=== PATIENT | male | born 1940 | race Caucasian/White ===

== ENCOUNTER 2018-10-13 15:20 | Inpatient (IN) | payer MEDICARE, MEDICAID ==
--- NOTE | 2018-10-13 16:20 | EDM.PDOC ---
ED HPI GENERAL MEDICAL PROBLEM - General Chief Complaint: Genitourinary Problem Stated Complaint: medical via [place] Time Seen by Provider: 10/13/18 15:25 Source of Information: Reports: Patient History Limitations: Reports: No Limitations - History of Present Illness INITIAL COMMENTS - FREE TEXT/NARRATIVE: pt arrived with increased confusion, smelly urinre and a history of urinating frequently. . Onset: Today, Sudden Duration: Hour(s): Location: Reports: Abdomen Associated Symptoms: Reports: Confusion, Diaphoresis, Weakness - Related Data Allergies Allergy/AdvReac Type Severity Reaction Status Date / Time No Known Allergies Allergy Verified 10/13/18 15:31 Home Meds: Home Meds Acetaminophen [Tylenol] 2 tab PO Q4H PRN 10/13/18 [History] Aspirin [Halfprin] 1 tab PO DAILY 10/13/18 [History] Cholecalciferol (Vitamin D3) [Vitamin D3] 1 tab PO DAILY 10/13/18 [History] Sennosides/Docusate Sodium [Senna-S] 1 tab PO DAILY 10/13/18 [History] traMADol [Ultram] 1 tab PO ASDIRECTED 10/13/18 [History] Past Medical History Gastrointestinal History: Reports: Chronic Constipation, Fecal Incontinence Genitourinary History: Reports: Urinary Incontinence Neurological History: Reports: Other (See Below) Dermatologic History: Reports: Chronic Cellulitis Social & Family History - Tobacco Use Smoking Status *Q: Unknown Ever Smoked Second Hand Smoke Exposure: No - Caffeine Use Caffeine Use: Reports: None - Recreational Drug Use Recreational Drug Use: No ED ROS GENERAL - Review of Systems Review Of Systems: See Below Constitutional: Reports: Chills, Weakness HEENT: Reports: No Symptoms Respiratory: Reports: No Symptoms Cardiovascular: Reports: No Symptoms Endocrine: Reports: No Symptoms GI/Abdominal: Reports: No Symptoms : Reports: Frequency Musculoskeletal: Reports: No Symptoms Skin: Reports: No Symptoms Neurological: Reports: Confusion, Headache Psychiatric: Reports: Agitation ED EXAM, RENAL/ - Physical Exam Exam: See Below Text/Narrative:: pt arrived with weakness and increased confusion. He has been urinating frequenly. Exam Limited By: No Limitations General Appearance: Alert, Other (pt is very confused. ) Ears: Normal TMs Nose: Normal Inspection Throat/Mouth: Normal Inspection Head: Atraumatic Neck: Normal Inspection Respiratory/Chest: No Respiratory Distress GI/Abdominal: Soft, Non-Tender (Male) Exam: Deferred Rectal (Males) Exam: Deferred Back Exam: Normal Inspection Extremities: Normal Inspection Neurological: Alert, Confused Course - Vital Signs Last Recorded V/S: Last Vital Signs Temp 36.8 C 10/13/18 15:28 Pulse 96 10/13/18 17:03 Resp 20 10/13/18 17:03 BP 160/70 H 10/13/18 17:03 Pulse Ox 100 10/13/18 17:03 - Orders/Labs/Meds Orders: Active Orders 24 hr Category Date Time Status Dietary Supplements [RC] BIDMEALS Care 10/13/18 16:38 Active CULTURE BLOOD [BC] Urgent Lab 10/13/18 17:11 Received CULTURE BLOOD [BC] Urgent Lab 10/13/18 17:24 Received CULTURE URINE [RM] Stat Lab 10/13/18 16:38 Received Sodium Chloride 0.9% [Normal Saline] 1,000 ml Med 10/13/18 16:45 Active IV ASDIRECTED Sodium Chloride 0.9% [Normal Saline] 1,000 ml Med 10/13/18 17:15 Active IV ASDIRECTED Blood Culture x2 Reflex Set [OM.PC] Urgent Oth 10/13/18 17:10 Ordered Medication Orders Sodium Chloride (Normal Saline) 1,000 mls @ 999 mls/hr IV ASDIRECTED [facility] Last Admin: 10/13/18 16:53 Dose: 999 mls/hr Sodium Chloride (Normal Saline) 1,000 mls @ 600 mls/hr IV ASDIRECTED [facility] Labs: Laboratory Tests 10/13/18 10/13/18 10/13/18 Range/Units 16:08 16:08 16:16 WBC 17.0 H (4.5-11.0) K/uL RBC 4.64 (4.30-5.90) M/uL Hgb 13.9 (12.0-15.0) g/dL Hct 42.9 (40.0-54.0) % MCV 93 (80-98) fL MCH 30 (27-31) pg MCHC 32 (32-36) % Plt Count 245 (150-400) K/uL Neut % (Auto) 80 H (36-66) % Lymph % (Auto) 9 L (24-44) % [place] % (Auto) 10 H (2-6) % Eos % (Auto) 1 L (2-4) % Baso % (Auto) 0 (0-1) % Sodium 134 L (140-148) mmol/L Potassium 4.4 (3.6-5.2) mmol/L Chloride 98 L (100-108) mmol/L Carbon Dioxide 28 (21-32) mmol/L Anion Gap 12.4 (5.0-14.0) mmol/L BUN 18 (7-18) mg/dL Creatinine 0.9 (0.8-1.3) mg/dL Est Cr Clr Drug Dosing 66.55 mL/min Estimated GFR (MDRD) > 60 (>60) Glucose 100 (74-106) mg/dL Lactic Acid (0.4-2.0) mmol/L Calcium 9.0 (8.5-10.1) mg/dL Total Bilirubin 0.5 (0.2-1.0) mg/dL AST 42 H (15-37) U/L ALT 45 (12-78) U/L Alkaline Phosphatase 59 (46-116) U/L Total Protein 7.7 (6.4-8.2) g/dL Albumin 3.1 L (3.4-5.0) g/dL Globulin 4.6 H (2.3-3.5) g/dL Albumin/Globulin Ratio 0.7 L (1.2-2.2) Urine Color Yellow Urine Appearance Cloudy Urine pH 5.0 (4.5-8.0) Ur Specific [place] 1.015 (1.008-1.030) Urine Protein Trace (NEGATIVE) mg/dL Urine Glucose (UA) Normal (NEGATIVE) mg/dL Urine Ketones 15 H (NEGATIVE) mg/dL Urine Occult Blood Large (NEGATIVE) Urine Nitrite Positive H (NEGAITVE) Urine Bilirubin Negative (NEGATIVE) Urine Urobilinogen Normal (NORMAL) mg/dL Ur Leukocyte Esterase Large (NEGATIVE) Urine RBC 10-20 H (0-5) Urine WBC 50-75 H (0-5) Ur Epithelial Cells Not seen Amorphous Sediment Not seen Urine Bacteria Many Urine Mucus Not seen 10/13/18 Range/Units 17:11 WBC (4.5-11.0) K/uL RBC (4.30-5.90) M/uL Hgb (12.0-15.0) g/dL Hct (40.0-54.0) % MCV (80-98) fL MCH (27-31) pg MCHC (32-36) % Plt Count (150-400) K/uL Neut % (Auto) (36-66) % Lymph % (Auto) (24-44) % [place] % (Auto) (2-6) % Eos % (Auto) (2-4) % Baso % (Auto) (0-1) % Sodium (140-148) mmol/L Potassium (3.6-5.2) mmol/L Chloride (100-108) mmol/L Carbon Dioxide (21-32) mmol/L Anion Gap (5.0-14.0) mmol/L BUN (7-18) mg/dL Creatinine (0.8-1.3) mg/dL Est Cr Clr Drug Dosing mL/min Estimated GFR (MDRD) (>60) Glucose (74-106) mg/dL Lactic Acid 1.3 (0.4-2.0) mmol/L Calcium (8.5-10.1) mg/dL Total Bilirubin (0.2-1.0) mg/dL AST (15-37) U/L ALT (12-78) U/L Alkaline Phosphatase (46-116) U/L Total Protein (6.4-8.2) g/dL Albumin (3.4-5.0) g/dL Globulin (2.3-3.5) g/dL Albumin/Globulin Ratio (1.2-2.2) Urine Color Urine Appearance Urine pH (4.5-8.0) Ur Specific [place] (1.008-1.030) Urine Protein (NEGATIVE) mg/dL Urine Glucose (UA) (NEGATIVE) mg/dL Urine Ketones (NEGATIVE) mg/dL Urine Occult Blood (NEGATIVE) Urine Nitrite (NEGAITVE) Urine Bilirubin (NEGATIVE) Urine Urobilinogen (NORMAL) mg/dL Ur Leukocyte Esterase (NEGATIVE) Urine RBC (0-5) Urine WBC (0-5) Ur Epithelial Cells Amorphous Sediment Urine Bacteria Urine Mucus Meds: Medications Generic Name Dose Route Start Last Admin Trade Name Freq PRN Reason Stop Dose Admin Sodium Chloride 1,000 mls @ 999 mls/hr 10/13/18 16:45 10/13/18 16:53 Normal Saline IV 999 mls/hr ASDIRECTED [facility] Administration Sodium Chloride 1,000 mls @ 600 mls/hr 10/13/18 17:15 Normal Saline IV ASDIRECTED [facility] Discontinued Medications Generic Name Dose Route Start Last Admin Trade Name Dunia PRN Reason Stop Dose Admin Ceftriaxone Sodium 1 gm/ 50 mls @ 100 mls/hr 10/13/18 16:38 10/13/18 16:52 Sodium Chloride IV 10/13/18 17:07 100 mls/hr ONETIME ONE Administration Ketorolac Tromethamine 30 mg 10/13/18 16:39 10/13/18 16:47 Toradol IVPUSH 10/13/18 16:40 30 mg ONETIME ONE Administration - Re-Assessments/Exams Free Text/Narrative Re-Assessment/Exam: 10/13/18 17:44 lactic acid is not elevated. Urine is very infected. His wbc is 17,000. His vitals have been stable. Departure - Departure Time of Disposition: 17:44 Disposition: Admitted As Inpatient 65 Condition: Fair Clinical Impression: UTI (urinary tract infection), Confusion - Discharge Information Referrals: Amilcar Claudio MD [Primary Care Provider] - Forms: ED Department Discharge Care Plan Goals: admit to Dr Zavala - My Orders Last 24 Hours: My Active Orders 10/13/18 16:38 Dietary Supplements [RC] BIDMEALS CULTURE URINE [RM] Stat 10/13/18 16:45 Sodium Chloride 0.9% [Normal Saline] 1,000 ml IV ASDIRECTED 10/13/18 17:10 Blood Culture x2 Reflex Set [OM.PC] Urgent 10/13/18 17:11 CULTURE BLOOD [BC] Urgent 10/13/18 17:15 Sodium Chloride 0.9% [Normal Saline] 1,000 ml IV ASDIRECTED 10/13/18 17:24 CULTURE BLOOD [BC] Urgent - Assessment/Plan Last 24 Hours: My Active Orders 10/13/18 16:38 Dietary Supplements [RC] BIDMEALS CULTURE URINE [RM] Stat 10/13/18 16:45 Sodium Chloride 0.9% [Normal Saline] 1,000 ml IV ASDIRECTED 10/13/18 17:10 Blood Culture x2 Reflex Set [OM.PC] Urgent 10/13/18 17:11 CULTURE BLOOD [BC] Urgent 10/13/18 17:15 Sodium Chloride 0.9% [Normal Saline] 1,000 ml IV ASDIRECTED 10/13/18 17:24 CULTURE BLOOD [BC] Urgent
[2018-10-13] MEDS ORDERED: cefTRIAXone 1 GM in Sodium Chloride 0.9% 50 ML IV ONE (16:38)
[2018-10-13] MEDS ORDERED: Ketorolac 30 MG/ML SDV IVPUSH ONE (16:39)
[2018-10-13] MEDS ORDERED: Sodium Chloride 0.9% 1,000 ML IV SCH ×2 (16:45→17:15)
--- NOTE | 2018-10-13 18:49 | PCM.HP ---
H&P History of Present Illness - General Date of Service: 10/13/18 Admit Problem/Dx: Admission Diagnosis/Problem Admission Diagnosis/Problem Cystitis Source of Information: [facility] Records, Provider, RN Notes Reviewed History Limitations: Reports: Altered Mental Status - History of Present Illness Initial Comments - Free Text/Narative: Mr. Alegria is a 78-year-old gentleman who is admitted through the emergency department with weakness and decreased level of consciousness secondary to underlying urinary tract infection. He has a known history of moderate to severe dementia. Nursing staff at the senior care reported decreased level of consciousness this morning. He was brought into the emergency department for further evaluation. On assessment urinalysis shows evidence of obvious infection and his white blood cell count is elevated. Other than a mild tachycardia vital signs are stable and he has been afebrile. Lactic acid level is within normal range. He is unable to provide significant information concerning recent symptoms or review of systems because of his underlying dementia and decreased level of consciousness. - Related Data Allergies/Adverse Reactions: Allergies Allergy/AdvReac Type Severity Reaction Status Date / Time No Known Allergies Allergy Verified 10/13/18 15:31 Home Medications: Home Meds Acetaminophen [Tylenol] 2 tab PO Q4H PRN 10/13/18 [History] Aspirin [Halfprin] 1 tab PO DAILY 10/13/18 [History] Cholecalciferol (Vitamin D3) [Vitamin D3] 1 tab PO DAILY 10/13/18 [History] Sennosides/Docusate Sodium [Senna-S] 1 tab PO DAILY 10/13/18 [History] traMADol [Ultram] 1 tab PO ASDIRECTED 10/13/18 [History] Past Medical History Gastrointestinal History: Reports: Chronic Constipation, Fecal Incontinence Genitourinary History: Reports: Urinary Incontinence Neurological History: Reports: Other (See Below) Dermatologic History: Reports: Chronic Cellulitis Social & Family History - Tobacco Use Smoking Status *Q: Unknown Ever Smoked Second Hand Smoke Exposure: No - Caffeine Use Caffeine Use: Reports: None - Recreational Drug Use Recreational Drug Use: No H&P Review of Systems - Review of Systems: Review Of Systems: Unable To Obtain General: Reports: ROS unobtainable (Dementia, decreased level of consciousness) Exam - Exam Exam: See Below - Vital Signs Vital Signs: Last Vital Signs Temp 98.2 F 01/10/19 15:28 Pulse 96 10/13/18 17:03 Resp 20 10/13/18 17:03 BP 160/70 H 10/13/18 17:03 Pulse Ox 100 10/13/18 17:03 Weight: 172 lb - Exam General: Lethargic HEENT: Conjunctiva Clear, Normal Nasal Septum, Posterior Pharynx Clear, Pupils Equal. No: Mucosa Moist & [place] Neck: Supple, Trachea Midline, +2 Carotid Pulse wo Bruit Lungs: Clear to Auscultation, Normal Respiratory Effort Cardiovascular: Regular Rate, Regular Rhythm, Normal S1, Normal S2. No: Systolic Murmur, Diastolic Murmur GI/Abdominal Exam: Soft, Non-Tender, No Organomegaly, No Distention Extremities: Non-Tender, No Pedal Edema Skin: Warm, Dry - Patient Data Lab Results Last 24 hrs: Laboratory Results - last 24 hr 10/13/18 10/13/18 10/13/18 Range/Units 16:08 16:08 16:16 WBC 17.0 H (4.5-11.0) K/uL RBC 4.64 (4.30-5.90) M/uL Hgb 13.9 (12.0-15.0) g/dL Hct 42.9 (40.0-54.0) % MCV 93 (80-98) fL MCH 30 (27-31) pg MCHC 32 (32-36) % Plt Count 245 (150-400) K/uL Neut % (Auto) 80 H (36-66) % Lymph % (Auto) 9 L (24-44) % [place] % (Auto) 10 H (2-6) % Eos % (Auto) 1 L (2-4) % Baso % (Auto) 0 (0-1) % Sodium 134 L (140-148) mmol/L Potassium 4.4 (3.6-5.2) mmol/L Chloride 98 L (100-108) mmol/L Carbon Dioxide 28 (21-32) mmol/L Anion Gap 12.4 (5.0-14.0) mmol/L BUN 18 (7-18) mg/dL Creatinine 0.9 (0.8-1.3) mg/dL Est Cr Clr Drug Dosing 66.55 mL/min Estimated GFR (MDRD) > 60 (>60) Glucose 100 (74-106) mg/dL Lactic Acid (0.4-2.0) mmol/L Calcium 9.0 (8.5-10.1) mg/dL Total Bilirubin 0.5 (0.2-1.0) mg/dL AST 42 H (15-37) U/L ALT 45 (12-78) U/L Alkaline Phosphatase 59 (46-116) U/L Total Protein 7.7 (6.4-8.2) g/dL Albumin 3.1 L (3.4-5.0) g/dL Globulin 4.6 H (2.3-3.5) g/dL Albumin/Globulin Ratio 0.7 L (1.2-2.2) Urine Color Yellow Urine Appearance Cloudy Urine pH 5.0 (4.5-8.0) Ur Specific [place] 1.015 (1.008-1.030) Urine Protein Trace (NEGATIVE) mg/dL Urine Glucose (UA) Normal (NEGATIVE) mg/dL Urine Ketones 15 H (NEGATIVE) mg/dL Urine Occult Blood Large (NEGATIVE) Urine Nitrite Positive H (NEGAITVE) Urine Bilirubin Negative (NEGATIVE) Urine Urobilinogen Normal (NORMAL) mg/dL Ur Leukocyte Esterase Large (NEGATIVE) Urine RBC 10-20 H (0-5) Urine WBC 50-75 H (0-5) Ur Epithelial Cells Not seen Amorphous Sediment Not seen Urine Bacteria Many Urine Mucus Not seen 10/13/18 Range/Units 17:11 WBC (4.5-11.0) K/uL RBC (4.30-5.90) M/uL Hgb (12.0-15.0) g/dL Hct (40.0-54.0) % MCV (80-98) fL MCH (27-31) pg MCHC (32-36) % Plt Count (150-400) K/uL Neut % (Auto) (36-66) % Lymph % (Auto) (24-44) % [place] % (Auto) (2-6) % Eos % (Auto) (2-4) % Baso % (Auto) (0-1) % Sodium (140-148) mmol/L Potassium (3.6-5.2) mmol/L Chloride (100-108) mmol/L Carbon Dioxide (21-32) mmol/L Anion Gap (5.0-14.0) mmol/L BUN (7-18) mg/dL Creatinine (0.8-1.3) mg/dL Est Cr Clr Drug Dosing mL/min Estimated GFR (MDRD) (>60) Glucose (74-106) mg/dL Lactic Acid 1.3 (0.4-2.0) mmol/L Calcium (8.5-10.1) mg/dL Total Bilirubin (0.2-1.0) mg/dL AST (15-37) U/L ALT (12-78) U/L Alkaline Phosphatase (46-116) U/L Total Protein (6.4-8.2) g/dL Albumin (3.4-5.0) g/dL Globulin (2.3-3.5) g/dL Albumin/Globulin Ratio (1.2-2.2) Urine Color Urine Appearance Urine pH (4.5-8.0) Ur Specific [place] (1.008-1.030) Urine Protein (NEGATIVE) mg/dL Urine Glucose (UA) (NEGATIVE) mg/dL Urine Ketones (NEGATIVE) mg/dL Urine Occult Blood (NEGATIVE) Urine Nitrite (NEGAITVE) Urine Bilirubin (NEGATIVE) Urine Urobilinogen (NORMAL) mg/dL Ur Leukocyte Esterase (NEGATIVE) Urine RBC (0-5) Urine WBC (0-5) Ur Epithelial Cells Amorphous Sediment Urine Bacteria Urine Mucus Result Diagrams: 10/13/18 16:08 10/13/18 16:08 *Q Meaningful Use (ADM) - VTE Risk Assess *Q Each Risk Factor Represents 1 Point: None Total Score 1 Point Risk Factors: 0 Each Risk Factor Represents 2 Points: None Total Score 2 Point Risk Factors: 0 Each Risk Factor Represents 3 Points: Age 75 Years or Greater Total Score 3 Point Risk Factors: 3 Each Risk Factor Represents 5 Points: None Total Score 5 Point Risk Factors: 0 Venous Thromboembolism Risk Factor Score *Q: 3 Problem List Initiated/Reviewed/Updated: Yes Orders Last 24hrs: Active Orders 24 hr Category Date Time Status Patient Status Manage Transfer [TRANSFER] Routine ADT 10/13/18 18:30 Active Dietary Supplements [RC] BIDMEALS Care 10/13/18 16:38 Active CULTURE BLOOD [BC] Urgent Lab 10/13/18 17:11 Received CULTURE BLOOD [BC] Urgent Lab 10/13/18 17:24 Received CULTURE URINE [RM] Stat Lab 10/13/18 16:38 Received Sodium Chloride 0.9% [Normal Saline] 1,000 ml Med 10/13/18 16:45 Active IV ASDIRECTED Sodium Chloride 0.9% [Normal Saline] 1,000 ml Med 10/13/18 17:15 Active IV ASDIRECTED Blood Culture x2 Reflex Set [OM.PC] Urgent Oth 10/13/18 17:10 Ordered Resuscitation Status Routine Resus Stat 10/13/18 18:38 Ordered Medication Orders Sodium Chloride (Normal Saline) 1,000 mls @ 999 mls/hr IV ASDIRECTED [facility] Last Admin: 10/13/18 16:53 Dose: 999 mls/hr Sodium Chloride (Normal Saline) 1,000 mls @ 600 mls/hr IV ASDIRECTED [facility] Assessment/Plan Comment:: ASSESSMENT AND PLAN URINARY TRACT INFECTION-uncomplicated with no evidence of sepsis -Urine and blood cultures pending -IV fluids for hydration -Rocephin 1 g IV every 24 hours pending culture results DECREASED LEVEL OF CONSCIOUSNESS-likely secondary to current urinary tract infection -Monitor closely for improvement with management of UTI DEMENTIA-at high risk for delirium during hospitalization -Melatonin 9 mg by mouth daily at bedtime MAINTENANCE ISSUES -DVT prophylaxis; Lovenox 40 mg subcutaneous daily -GI prophylaxis; not indicated -Storm catheter; not indicated -Nutrition; regular diet -Nicotine dependence; not required CODE STATUS-FULL CODE ADMISSION STATUS-patient will be admitted to inpatient status, expect at least a 2 night hospital stay for evaluation and management of problems as outlined above. At the time of this admission I do not reasonably expected evaluation and management of this problem will require more than a 96 hour hospital stay. DISPOSITION-anticipate discharge to home after the hospital stay. PRIMARY CARE PROVIDER-
[2018-10-13] MEDS ORDERED: Enoxaparin 40 MG/0.4 ML Syringe SUBCUT SCH (19:00)
[2018-10-13] MEDS ORDERED: Polyethylene Glycol 3350 Powder 17 GM Packet PO PRN (19:03)
[2018-10-13] MEDS ORDERED: Acetaminophen 325 MG Tab PO PRN (19:03)
[2018-10-13] MEDS ORDERED: Sodium Chloride 0.9% 10 ML Syringe FLUSH PRN (19:03)
[2018-10-13] MEDS ORDERED: Ondansetron 4 MG Tab.DIS PO PRN (19:03)
[2018-10-13] MEDS: Sodium Chloride 0.9% 1,000 ML IV SCH (19:24)
[2018-10-14] MEDS: Sodium Chloride 0.9% 1,000 ML IV SCH (02:54)
[2018-10-14] MEDS ORDERED: Aspirin 81 MG Tab.EC PO SCH (09:00)
--- NOTE | 2018-10-14 12:33 | PCM.DCSUM1 ---
Discharge Summary - Hospital Course Brief History: Mr. Alegria is a 78-year-old gentleman who is admitted through the emergency department with decreased level of consciousness and weakness secondary to underlying urinary tract infection. - Discharge Data Discharge Date: 10/14/18 Discharge Disposition: DC/Tfer to SNF 03 Condition: Fair - Discharge Diagnosis/Problem(s) (1) Dehydration SNOMED Code(s): 38391253 ICD Code: E86.0 - DEHYDRATION Status: Acute Current Visit: Yes (2) Dementia SNOMED Code(s): 59675548 ICD Code: F03.90 - UNSPECIFIED DEMENTIA WITHOUT BEHAVIORAL DISTURBANCE Status: Acute Current Visit: Yes (3) Decreased level of consciousness SNOMED Code(s): 961966145 ICD Code: R40.4 - TRANSIENT ALTERATION OF AWARENESS Status: Acute Current Visit: Yes (4) UTI (urinary tract infection) SNOMED Code(s): 14829011 ICD Code: N39.0 - URINARY TRACT INFECTION, SITE NOT SPECIFIED Status: Acute Current Visit: Yes - Patient Summary/Data Hospital Course: Mr. Alegria is a 78-year-old gentleman who was admitted through the emergency department with weakness and decreased level of consciousness secondary to underlying urinary tract infection. He has a known history of moderate to severe dementia. Nursing staff at the [facility] reported decreased level of consciousness on the morning of admission. He was brought into the emergency department for further evaluation. On assessment urinalysis shows evidence of obvious infection and his white blood cell count is elevated. Other than a mild tachycardia vital signs are stable and he has been afebrile. Lactic acid level is within normal range. He is unable to provide significant information concerning recent symptoms or review of systems because of his underlying dementia and decreased level of consciousness. Blood and urine cultures were obtained at the time of admission and are pending at the time of discharge. Urine culture is growing gram-negative rods, final ID and sensitivities are pending. He was given IV fluids for hydration and started on IV antibiotic therapy with Rocephin 1 g IV every 24 hours. By the following morning he was felt to be back to baseline state, conversant and sitting in the chair. He had been admitted to inpatient status, because of more rapid improvement than initially expected, he will be discharged back to the [facility] after just one night of hospitalization. He will receive one additional dose of IV Rocephin prior to discharge and will be placed on 3 or days of oral antibiotic therapy with Omnicef 300 mg by mouth twice a day, pending final culture results. Activity will be as tolerated and he will resume his usual diet. Follow-up with primary care will be at the [facility] as needed. - Patient Instructions Diet: Usual Diet as Tolerated Activity: As Tolerated - Discharge Plan *PRESCRIPTION DRUG MONITORING PROGRAM REVIEWED*: Not Applicable *COPY OF PRESCRIPTION DRUG MONITORING REPORT IN PATIENT JAY: Not Applicable Prescriptions/Med Rec: Cefdinir [Omnicef] 300 mg PO BID #6 cap Home Medications: Home Meds Acetaminophen [Tylenol] 2 tab PO Q4H PRN 10/13/18 [History] Aspirin [Halfprin] 1 tab PO DAILY 10/13/18 [History] Cholecalciferol (Vitamin D3) [Vitamin D3] 1 tab PO DAILY 10/13/18 [History] Sennosides/Docusate Sodium [Senna-S] 1 tab PO DAILY 10/13/18 [History] traMADol [Ultram] 1 tab PO ASDIRECTED 10/13/18 [History] Cefdinir [Omnicef] 300 mg PO BID #6 cap 10/14/18 [Rx] Referrals: Amilcar Claudio MD [Primary Care Provider] - - Discharge Summary/Plan Comment DC Time >30 min.: No - Patient Data Vitals - Most Recent: Last Vital Signs Temp 96.4 F 10/14/18 10:54 Pulse 95 10/14/18 10:54 Resp 18 10/14/18 10:54 BP 142/64 H 10/14/18 10:54 Pulse Ox 94 L 10/14/18 10:54 Weight - Most Recent: 171 lb 15.369 oz I&O - Last 24 hours: Intake & Output 10/13/18 10/14/18 10/14/18 22:59 06:59 14:59 Intake Total 280 Balance 280 Lab Results - Last 24 hrs: Laboratory Results - last 24 hr 10/13/18 10/13/18 10/13/18 Range/Units 16:08 16:08 16:16 WBC 17.0 H (4.5-11.0) K/uL RBC 4.64 (4.30-5.90) M/uL Hgb 13.9 (12.0-15.0) g/dL Hct 42.9 (40.0-54.0) % MCV 93 (80-98) fL MCH 30 (27-31) pg MCHC 32 (32-36) % Plt Count 245 (150-400) K/uL Neut % (Auto) 80 H (36-66) % Lymph % (Auto) 9 L (24-44) % [place] % (Auto) 10 H (2-6) % Eos % (Auto) 1 L (2-4) % Baso % (Auto) 0 (0-1) % Sodium 134 L (140-148) mmol/L Potassium 4.4 (3.6-5.2) mmol/L Chloride 98 L (100-108) mmol/L Carbon Dioxide 28 (21-32) mmol/L Anion Gap 12.4 (5.0-14.0) mmol/L BUN 18 (7-18) mg/dL Creatinine 0.9 (0.8-1.3) mg/dL Est Cr Clr Drug Dosing 66.55 mL/min Estimated GFR (MDRD) > 60 (>60) Glucose 100 (74-106) mg/dL Lactic Acid (0.4-2.0) mmol/L Calcium 9.0 (8.5-10.1) mg/dL Magnesium (1.8-2.4) mg/dL Total Bilirubin 0.5 (0.2-1.0) mg/dL AST 42 H (15-37) U/L ALT 45 (12-78) U/L Alkaline Phosphatase 59 (46-116) U/L Total Protein 7.7 (6.4-8.2) g/dL Albumin 3.1 L (3.4-5.0) g/dL Globulin 4.6 H (2.3-3.5) g/dL Albumin/Globulin Ratio 0.7 L (1.2-2.2) Urine Color Yellow Urine Appearance Cloudy Urine pH 5.0 (4.5-8.0) Ur Specific [place] 1.015 (1.008-1.030) Urine Protein Trace (NEGATIVE) mg/dL Urine Glucose (UA) Normal (NEGATIVE) mg/dL Urine Ketones 15 H (NEGATIVE) mg/dL Urine Occult Blood Large (NEGATIVE) Urine Nitrite Positive H (NEGAITVE) Urine Bilirubin Negative (NEGATIVE) Urine Urobilinogen Normal (NORMAL) mg/dL Ur Leukocyte Esterase Large (NEGATIVE) Urine RBC 10-20 H (0-5) Urine WBC 50-75 H (0-5) Ur Epithelial Cells Not seen Amorphous Sediment Not seen Urine Bacteria Many Urine Mucus Not seen 10/13/18 10/14/18 10/14/18 Range/Units 17:11 05:00 05:00 WBC 11.9 H (4.5-11.0) K/uL RBC 4.29 L (4.30-5.90) M/uL Hgb 13.2 (12.0-15.0) g/dL Hct 39.8 L (40.0-54.0) % MCV 93 (80-98) fL MCH 31 (27-31) pg MCHC 33 (32-36) % Plt Count 142 L (150-400) K/uL Neut % (Auto) 73 H (36-66) % Lymph % (Auto) 13 L (24-44) % [place] % (Auto) 12 H (2-6) % Eos % (Auto) 2 (2-4) % Baso % (Auto) 0 (0-1) % Sodium 137 L (140-148) mmol/L Potassium 4.3 (3.6-5.2) mmol/L Chloride 104 (100-108) mmol/L Carbon Dioxide 25 (21-32) mmol/L Anion Gap 12.3 (5.0-14.0) mmol/L BUN 13 (7-18) mg/dL Creatinine 0.6 L (0.8-1.3) mg/dL Est Cr Clr Drug Dosing 99.50 mL/min Estimated GFR (MDRD) > 60 (>60) Glucose 78 (74-106) mg/dL Lactic Acid 1.3 (0.4-2.0) mmol/L Calcium 8.4 L (8.5-10.1) mg/dL Magnesium 1.8 (1.8-2.4) mg/dL Total Bilirubin (0.2-1.0) mg/dL AST (15-37) U/L ALT (12-78) U/L Alkaline Phosphatase (46-116) U/L Total Protein (6.4-8.2) g/dL Albumin (3.4-5.0) g/dL Globulin (2.3-3.5) g/dL Albumin/Globulin Ratio (1.2-2.2) Urine Color Urine Appearance Urine pH (4.5-8.0) Ur Specific [place] (1.008-1.030) Urine Protein (NEGATIVE) mg/dL Urine Glucose (UA) (NEGATIVE) mg/dL Urine Ketones (NEGATIVE) mg/dL Urine Occult Blood (NEGATIVE) Urine Nitrite (NEGAITVE) Urine Bilirubin (NEGATIVE) Urine Urobilinogen (NORMAL) mg/dL Ur Leukocyte Esterase (NEGATIVE) Urine RBC (0-5) Urine WBC (0-5) Ur Epithelial Cells Amorphous Sediment Urine Bacteria Urine Mucus SHANNON Results - Last 24 hrs: Microbiology 10/13/18 16:38 Urine Culture - Preliminary Urine, Bladder Med Orders - Current: Current Medications Acetaminophen (Tylenol) 650 mg PO Q4H PRN PRN Reason: Pain (Mild 1-3)/fever Last Admin: 10/14/18 09:10 Dose: 650 mg Aspirin (Halfprin) 81 mg PO DAILY [facility] Last Admin: 10/14/18 09:10 Dose: 81 mg Enoxaparin Sodium (Lovenox) 40 mg SUBCUT Q24H [facility] Last Admin: 10/13/18 19:26 Dose: 40 mg Sodium Chloride (Normal Saline) 1,000 mls @ 125 mls/hr IV ASDIRECTED [facility] Last Admin: 10/14/18 02:54 Dose: 125 mls/hr Ceftriaxone Sodium 1 gm/ (Sodium Chloride) 50 mls @ 100 mls/hr IV ONETIME ONE Stop: 10/14/18 13:14 Influenza Virus Vaccine (Fluzone High-Dose Syringe) 180 mcg IM .ONCE ONE Stop: 10/14/18 14:01 Ondansetron HCl (Zofran Odt) 4 mg PO Q6H PRN PRN Reason: Nausea able to take PO Polyethylene Glycol (Miralax) 17 gm PO DAILY PRN PRN Reason: Constipation Senna/Docusate Sodium (Senna Plus) 1 tab PO DAILY [facility] Last Admin: 10/14/18 09:10 Dose: 1 tab Sodium Chloride (Saline Flush) 10 ml FLUSH ASDIRECTED PRN PRN Reason: Keep Vein Open Discontinued Medications Sodium Chloride (Normal Saline) 1,000 mls @ 999 mls/hr IV ASDIRECTED [facility] Last Admin: 10/13/18 16:53 Dose: 999 mls/hr Ceftriaxone Sodium 1 gm/ (Sodium Chloride) 50 mls @ 100 mls/hr IV ONETIME ONE Stop: 10/13/18 17:07 Last Admin: 10/13/18 16:52 Dose: 100 mls/hr Sodium Chloride (Normal Saline) 1,000 mls @ 600 mls/hr IV ASDIRECTED [facility] Ceftriaxone Sodium 1 gm/ (Sodium Chloride) 50 mls @ 100 mls/hr IV Q24H [facility] Influenza Virus Vaccine (Pharmacy To Dose - Influenza Vaccine) 1 each IM ONETIME ONE Stop: 10/14/18 12:01 Influenza Virus Vaccine (Fluzone High-Dose Syringe) 180 mcg IM .ONCE ONE Stop: 10/13/18 20:01 Last Admin: 10/13/18 23:05 Dose: Not Given Ketorolac Tromethamine (Toradol) 30 mg IVPUSH ONETIME ONE Stop: 10/13/18 16:40 Last Admin: 10/13/18 16:47 Dose: 30 mg - Exam General: Reports: Alert, Cooperative, No Acute Distress. Denies: Oriented Lungs: Reports: Clear to Auscultation, Normal Respiratory Effort Cardiovascular: Reports: Regular Rate, Regular Rhythm, No Murmurs GI/Abdominal Exam: Soft, Non-Tender, No Organomegaly, No Distention Extremities: Non-Tender, No Pedal Edema
[2018-10-14] MEDS ORDERED: cefTRIAXone 1 GM in Sodium Chloride 0.9% 50 ML IV ONE (12:45)
[2018-10-14] MEDS ORDERED: cefTRIAXone 1 GM in Sodium Chloride 0.9% 50 ML IV SCH (16:00)
== END 2018-10-14 13:39 | DRG 690 ==
LOC: JP.ED 15:20 → JP.MS 18:30
PROVIDERS: ADMIT Hospitalist; ATTEND Hospitalist
DX: N39.0 Urinary tract infection, site not specified (principal); E86.0 Dehydration; F03.90 Unspecified dementia, unspecified severity, without behavioral disturbance, psychotic disturbance, mood disturbance, and anxiety; R53.1 Weakness; R40.4 Transient alteration of awareness; K59.09 Other constipation; Z79.82 Long term (current) use of aspirin
CPT/HCPCS: 36415; 80053; 81001; 83605; 85025; 87040 ×2; 87086; 87088; 87186; 96365; 96375; 99285; J0696; J1885; J7030; J7050; 80048; 83735; A9270-GY; J1650

== ENCOUNTER 2018-12-06 15:08 | Emergency (ER) | payer MEDICARE, MEDICAID ==
[2018-12-06] MEDS ORDERED: Acetaminophen 325 MG Tab PO ONE (15:13)
[2018-12-06] MEDS ORDERED: Sodium Chloride 0.9% 1,000 ML IV SCH ×3 (15:15→16:45)
--- NOTE | 2018-12-06 15:24 | EDM.PDOC ---
<Yadi Walker - Last Filed: 12/06/18 16:33> ED HPI GENERAL MEDICAL PROBLEM - General Chief Complaint: Possible Sepsis Stated Complaint: SICK Time Seen by Provider: 12/06/18 15:22 Source of Information: Reports: Patient History Limitations: Reports: No Limitations - History of Present Illness INITIAL COMMENTS - FREE TEXT/NARRATIVE: pt arrived with a rapid heart rate and high temp He has had apast history of sepsis in the past. Onset: Today, Sudden Duration: Hour(s): Location: Reports: Generalized Associated Symptoms: Reports: Fever/Chills - Related Data Allergies Allergy/AdvReac Type Severity Reaction Status Date / Time No Known Allergies Allergy Verified 10/13/18 15:31 Home Meds: Home Meds Acetaminophen [Tylenol] 2 tab PO Q4H PRN 10/13/18 [History] Aspirin [Halfprin] 1 tab PO DAILY 10/13/18 [History] Cholecalciferol (Vitamin D3) [Vitamin D3] 1 tab PO DAILY 10/13/18 [History] Sennosides/Docusate Sodium [Senna-S] 1 tab PO DAILY 10/13/18 [History] traMADol [Ultram] 1 tab PO ASDIRECTED 10/13/18 [History] Bacitracin [Bacitracin Ophth Oint] 1 applic TOP DAILY 12/06/18 [History] Carboxymethylcellulose Sodium [Refresh Plus 0.5%] 2 drop TOP TID 12/06/18 [ History] QUEtiapine Fumarate [Quetiapine Fumarate ER] 1 tab PO BEDTIME 12/06/18 [History] rOPINIRole [Requip] 1 tab PO BEDTIME 12/06/18 [History] traMADol HCl [Tramadol HCl] 1 tab PO DAILY PRN 12/06/18 [History] Past Medical History HEENT History: Reports: Other (See Below) Other HEENT History: dry eyes Cardiovascular History: Reports: PVD Gastrointestinal History: Reports: Chronic Constipation, Fecal Incontinence Genitourinary History: Reports: Urinary Incontinence Musculoskeletal History: Reports: Other (See Below) Other Musculoskeletal History: muscle weakness Neurological History: Reports: Other (See Below) Other Neuro History: delerium Hematologic History: Reports: Other (See Below) Other Hematologic History: vit d deficiency Dermatologic History: Reports: Chronic Cellulitis Social & Family History - Family History Family Medical History: Unobtainable - Caffeine Use Caffeine Use: Reports: None ED ROS GENERAL - Review of Systems Review Of Systems: See Below Constitutional: Reports: Fever, Chills, Malaise HEENT: Reports: No Symptoms Respiratory: Reports: No Symptoms Cardiovascular: Reports: Palpitations, Other ( when the ambulance arrived he was quite tachy. He did not have any chest pain. He has not noted increased ankle swelling. ) Endocrine: Reports: No Symptoms GI/Abdominal: Reports: No Symptoms : Reports: Other ( He has urinary incontinence and he has had UTIs in the past. ) Musculoskeletal: Reports: No Symptoms Skin: Reports: No Symptoms Neurological: Reports: No Symptoms Psychiatric: Reports: No Symptoms ED EXAM, SEPSIS - Physical Exam Exam: See Below Text/Narrative:: pt arrived with a history of a fever. When the ambulance arrived he had a tachcardia. He has a past history of UTIs. He did not have chest pain and his sats were good. Exam Limited By: No Limitations General Appearance: Alert, Anxious, Moderate Distress Ears: Normal TMs Nose: Normal Inspection Throat/Mouth: Normal Inspection Head: Atraumatic Neck: Normal Inspection Respiratory/Chest: No Respiratory Distress Cardiovascular: Regular Rate, Rhythm, Tachycardia, Other ( pt was very rapid at first in the 160 range. He now is at 120. His temp was found to be 101. ) GI/Abdominal Exam: Soft, Non-Tender (Male) Exam: Deferred, Other (pt is incontinent of urine. ) Rectal (Males) Exam: Deferred Back: Normal Inspection Extremities: Other ( Pt has chronic swelling in his lower legs with some redness occassionally. His legs were wrapped with lenard wraps. ) Neurological: Alert, Other (pt is not talking alot but will answer questions when he is ask. ) Psychiatric: Normal Affect Course - Vital Signs Last Recorded V/S: Last Vital Signs Temp 99.6 C H 12/06/18 16:10 Pulse 98 12/06/18 18:21 Resp 21 H 12/06/18 18:21 BP 112/56 L 12/06/18 18:21 Pulse Ox 94 L 12/06/18 18:21 - Orders/Labs/Meds Orders: Active Orders 24 hr Category Date Time Status EKG Documentation Completion [RC] ASDIRECTED Care 12/06/18 15:12 Active Storm Catheter Insertion [Insert Urinary Catheter] [OM. Care 12/06/18 15:15 Ordered PC] Q24H Urinary Catheter Assessment [RC] ASDIRECTED Care 12/06/18 15:15 Active CULTURE BLOOD [BC] Urgent Lab 12/06/18 15:20 Received CULTURE BLOOD [BC] Urgent Lab 12/06/18 15:30 Received CULTURE URINE [RM] Stat Lab 12/06/18 16:08 Received Heparin Sodium/D5W [Heparin 25,000 Units in D5W 500 ML] Med 12/06/18 18:30 Active 25,000 units in 500 ml IV TITRATE Piperacillin/Tazobactam [Zosyn] 3.375 gm Med 12/06/18 15:45 Active Sodium Chloride 0.9% [Normal Saline] 50 ml IV Q6H Sodium Chloride 0.9% [Normal Saline] 1,000 ml Med 12/06/18 15:15 Active IV ASDIRECTED Sodium Chloride 0.9% [Normal Saline] 1,000 ml Med 12/06/18 15:45 Active IV ASDIRECTED Sodium Chloride 0.9% [Normal Saline] 1,000 ml Med 12/06/18 16:45 Active IV ASDIRECTED Blood Culture x2 Reflex Set [OM.PC] Urgent Oth 12/06/18 15:10 Ordered EKG 12 Lead [EK] Routine Ther 12/06/18 15:12 Ordered Medication Orders Sodium Chloride (Normal Saline) 1,000 mls @ 999 mls/hr IV ASDIRECTED [facility] Last Admin: 12/06/18 15:18 Dose: 999 mls/hr Piperacillin Sod/Tazobactam (Sod 3.375 gm/ Sodium Chloride) 50 mls @ 100 mls/ hr IV Q6H [facility] Last Admin: 12/06/18 15:53 Dose: 100 mls/hr Sodium Chloride (Normal Saline) 1,000 mls @ 999 mls/hr IV ASDIRECTED [facility] Last Admin: 12/06/18 15:48 Dose: 999 mls/hr Sodium Chloride (Normal Saline) 1,000 mls @ 500 mls/hr IV ASDIRECTED [facility] Last Admin: 12/06/18 16:57 Dose: 500 mls/hr Heparin Sodium/Dextrose (Heparin 25,000 Units In D5w 500 Ml) 25,000 units in 500 mls @ 20 mls/hr IV TITRATE [facility] Labs: Laboratory Tests 12/06/18 12/06/18 12/06/18 Range/Units 15:10 15:30 15:30 WBC 24.1 H (4.5-11.0) K/uL RBC 4.49 (4.30-5.90) M/uL Hgb 13.2 (12.0-15.0) g/dL Hct 42.2 (40.0-54.0) % MCV 94 (80-98) fL MCH 29 (27-31) pg MCHC 31 L (32-36) % Plt Count 254 (150-400) K/uL Neut % (Auto) 86 H (36-66) % Lymph % (Auto) 4 L (24-44) % [place] % (Auto) 11 H (2-6) % Eos % (Auto) 0 L (2-4) % Baso % (Auto) 0 (0-1) % Sodium 137 L (140-148) mmol/L Potassium 4.0 (3.6-5.2) mmol/L Chloride 104 (100-108) mmol/L Carbon Dioxide 23 (21-32) mmol/L Anion Gap 14.0 (5.0-14.0) mmol/L BUN 19 H (7-18) mg/dL Creatinine 0.8 (0.8-1.3) mg/dL Est Cr Clr Drug Dosing 65.13 mL/min Estimated GFR (MDRD) > 60 (>60) Glucose 104 (74-106) mg/dL Lactic Acid 1.3 (0.4-2.0) mmol/L Calcium 7.9 L (8.5-10.1) mg/dL Total Bilirubin 0.4 (0.2-1.0) mg/dL AST 19 (15-37) U/L ALT 20 (12-78) U/L Alkaline Phosphatase 46 (46-116) U/L Troponin I (0.000-0.056) ng/mL NT-Pro-B Natriuret Pep (5-450) pg/mL Total Protein 6.4 (6.4-8.2) g/dL Albumin 2.7 L (3.4-5.0) g/dL Globulin 3.7 H (2.3-3.5) g/dL Albumin/Globulin Ratio 0.7 L (1.2-2.2) Urine Color Urine Appearance Urine pH (4.5-8.0) Ur Specific [place] (1.008-1.030) Urine Protein (NEGATIVE) mg/dL Urine Glucose (UA) (NEGATIVE) mg/dL Urine Ketones (NEGATIVE) mg/dL Urine Occult Blood (NEGATIVE) Urine Nitrite (NEGAITVE) Urine Bilirubin (NEGATIVE) Urine Urobilinogen (NORMAL) mg/dL Ur Leukocyte Esterase (NEGATIVE) Urine RBC (0-5) Urine WBC (0-5) Ur Epithelial Cells Amorphous Sediment Urine Bacteria Urine Mucus 12/06/18 12/06/18 12/06/18 Range/Units 15:30 15:30 15:47 WBC (4.5-11.0) K/uL RBC (4.30-5.90) M/uL Hgb (12.0-15.0) g/dL Hct (40.0-54.0) % MCV (80-98) fL MCH (27-31) pg MCHC (32-36) % Plt Count (150-400) K/uL Neut % (Auto) (36-66) % Lymph % (Auto) (24-44) % [place] % (Auto) (2-6) % Eos % (Auto) (2-4) % Baso % (Auto) (0-1) % Sodium (140-148) mmol/L Potassium (3.6-5.2) mmol/L Chloride (100-108) mmol/L Carbon Dioxide (21-32) mmol/L Anion Gap (5.0-14.0) mmol/L BUN (7-18) mg/dL Creatinine (0.8-1.3) mg/dL Est Cr Clr Drug Dosing mL/min Estimated GFR (MDRD) (>60) Glucose (74-106) mg/dL Lactic Acid (0.4-2.0) mmol/L Calcium (8.5-10.1) mg/dL Total Bilirubin (0.2-1.0) mg/dL AST (15-37) U/L ALT (12-78) U/L Alkaline Phosphatase (46-116) U/L Troponin I 0.231 H* (0.000-0.056) ng/mL NT-Pro-B Natriuret Pep 940 H (5-450) pg/mL Total Protein (6.4-8.2) g/dL Albumin (3.4-5.0) g/dL Globulin (2.3-3.5) g/dL Albumin/Globulin Ratio (1.2-2.2) Urine Color Yellow Urine Appearance Cloudy Urine pH 5.0 (4.5-8.0) Ur Specific [place] 1.015 (1.008-1.030) Urine Protein Negative (NEGATIVE) mg/dL Urine Glucose (UA) Normal (NEGATIVE) mg/dL Urine Ketones Negative (NEGATIVE) mg/dL Urine Occult Blood Large (NEGATIVE) Urine Nitrite Positive H (NEGAITVE) Urine Bilirubin Negative (NEGATIVE) Urine Urobilinogen Normal (NORMAL) mg/dL Ur Leukocyte Esterase Moderate (NEGATIVE) Urine RBC 5-10 H (0-5) Urine WBC 10-20 H (0-5) Ur Epithelial Cells Not seen Amorphous Sediment Not seen Urine Bacteria Many Urine Mucus Not seen 12/06/18 Range/Units 17:48 WBC (4.5-11.0) K/uL RBC (4.30-5.90) M/uL Hgb (12.0-15.0) g/dL Hct (40.0-54.0) % MCV (80-98) fL MCH (27-31) pg MCHC (32-36) % Plt Count (150-400) K/uL Neut % (Auto) (36-66) % Lymph % (Auto) (24-44) % [place] % (Auto) (2-6) % Eos % (Auto) (2-4) % Baso % (Auto) (0-1) % Sodium (140-148) mmol/L Potassium (3.6-5.2) mmol/L Chloride (100-108) mmol/L Carbon Dioxide (21-32) mmol/L Anion Gap (5.0-14.0) mmol/L BUN (7-18) mg/dL Creatinine (0.8-1.3) mg/dL Est Cr Clr Drug Dosing mL/min Estimated GFR (MDRD) (>60) Glucose (74-106) mg/dL Lactic Acid (0.4-2.0) mmol/L Calcium (8.5-10.1) mg/dL Total Bilirubin (0.2-1.0) mg/dL AST (15-37) U/L ALT (12-78) U/L Alkaline Phosphatase (46-116) U/L Troponin I 0.369 H* (0.000-0.056) ng/mL NT-Pro-B Natriuret Pep (5-450) pg/mL Total Protein (6.4-8.2) g/dL Albumin (3.4-5.0) g/dL Globulin (2.3-3.5) g/dL Albumin/Globulin Ratio (1.2-2.2) Urine Color Urine Appearance Urine pH (4.5-8.0) Ur Specific [place] (1.008-1.030) Urine Protein (NEGATIVE) mg/dL Urine Glucose (UA) (NEGATIVE) mg/dL Urine Ketones (NEGATIVE) mg/dL Urine Occult Blood (NEGATIVE) Urine Nitrite (NEGAITVE) Urine Bilirubin (NEGATIVE) Urine Urobilinogen (NORMAL) mg/dL Ur Leukocyte Esterase (NEGATIVE) Urine RBC (0-5) Urine WBC (0-5) Ur Epithelial Cells Amorphous Sediment Urine Bacteria Urine Mucus Meds: Medications Generic Name Dose Route Start Last Admin Trade Name Freq PRN Reason Stop Dose Admin Sodium Chloride 1,000 mls @ 999 mls/hr 12/06/18 15:15 12/06/18 15:18 Normal Saline IV 999 mls/hr ASDIRECTED [facility] Administration Piperacillin Sod/Tazobactam 50 mls @ 100 mls/hr 12/06/18 15:45 12/06/18 15:53 Sod 3.375 gm/ Sodium Chloride IV 100 mls/hr Q6H [facility] Administration Sodium Chloride 1,000 mls @ 999 mls/hr 12/06/18 15:45 12/06/18 15:48 Normal Saline IV 999 mls/hr ASDIRECTED [facility] Administration Sodium Chloride 1,000 mls @ 500 mls/hr 12/06/18 16:45 12/06/18 16:57 Normal Saline IV 500 mls/hr ASDIRECTED [facility] Administration Heparin Sodium/Dextrose 25,000 units in 500 mls @ 20 mls/hr 12/06/18 18:30 Heparin 25,000 Units In D5w 500 Ml IV TITRATE [facility] 1,000 UNITS/HR Discontinued Medications Generic Name Dose Route Start Last Admin Trade Name Freq PRN Reason Stop Dose Admin Acetaminophen 650 mg 12/06/18 15:13 12/06/18 15:16 Tylenol PO 12/06/18 15:14 650 mg NOW ONE Administration Adenosine 6 mg 12/06/18 15:54 12/06/18 15:47 Adenocard IVPUSH 12/06/18 15:55 6 mg NOW ONE Administration Adenosine Confirm 12/06/18 15:54 12/06/18 16:08 Adenocard Administered 12/06/18 15:55 Not Given Dose 6 mg .ROUTE .STK-MED ONE Adenosine 12 mg 12/06/18 15:57 12/06/18 15:57 Adenocard IVPUSH 12/06/18 15:58 12 mg NOW ONE Administration Clopidogrel Bisulfate 300 mg 12/06/18 18:28 12/06/18 18:37 Plavix PO 12/06/18 18:29 300 mg ONETIME ONE Administration Heparin Sodium (Porcine) 5,000 units 12/06/18 18:28 12/06/18 18:36 Heparin Sodium IVPUSH 12/06/18 18:29 5,000 units ONETIME ONE Administration Ibuprofen 600 mg 12/06/18 16:05 12/06/18 16:10 Motrin PO 12/06/18 16:06 600 mg ONETIME ONE Administration Lidocaine HCl Confirm 12/06/18 15:27 12/06/18 16:59 Xylocaine 2% Jelly Administered 12/06/18 15:28 Not Given Dose 10 ml .ROUTE .STK-MED ONE Lidocaine HCl 10 ml 12/06/18 16:58 12/06/18 16:59 Xylocaine 2% Jelly MUCMEM 12/06/18 16:59 10 ml ONETIME ONE Administration Metoprolol Tartrate 2.5 mg 12/06/18 16:03 12/06/18 16:06 Lopressor IVPUSH 12/06/18 16:04 2.5 mg ONETIME ONE Administration Metoprolol Tartrate Confirm 12/06/18 16:04 12/06/18 16:08 Lopressor Administered 12/06/18 16:05 Not Given Dose 5 mg .ROUTE .STK-MED ONE - Re-Assessments/Exams Free Text/Narrative Re-Assessment/Exam: 12/06/18 16:33 pt does have a elevated trop. He did have a sustained tachy at a rate of 180. He pereira been given adenogard. and lopressor and his rate is down to 102. He will have a repeat trop at 5 thirty. pt has good renal funtion and his bnp is mildly elevated. 12/06/18 16:38 Departure - Departure Disposition: DC/Tfer to [facility] 02 Clinical Impression: Elevated troponin, Tachycardia UTI (urinary tract infection) Qualifiers: Urinary tract infection type: site unspecified Hematuria presence: without hematuria Qualified Code(s): N39.0 - Urinary tract infection, site not specified - Discharge Information Referrals: PCP,None [Primary Care Provider] - Forms: ED Department Discharge - My Orders Last 24 Hours: My Active Orders 12/06/18 18:30 Heparin Sodium/D5W [Heparin 25,000 Units in D5W 500 ML] 25,000 units in 500 ml IV TITRATE - Assessment/Plan Last 24 Hours: My Active Orders 12/06/18 18:30 Heparin Sodium/D5W [Heparin 25,000 Units in D5W 500 ML] 25,000 units in 500 ml IV TITRATE <Jez Granda G - Last Filed: 12/06/18 18:39> Course - Vital Signs Text/Narrative:: Accepted in transfer by Dr. Romo, hospitalist at [facility] @ 1830 Departure - Departure Time of Disposition: 18:45 Condition: Serious - Discharge Information *PRESCRIPTION DRUG MONITORING PROGRAM REVIEWED*: No *COPY OF PRESCRIPTION DRUG MONITORING REPORT IN PATIENT JAY: No
[2018-12-06] MEDS ORDERED: Lidocaine 2% Jelly 10 ML Urojet ONE (15:27)
[2018-12-06] MEDS ORDERED: Piperacillin/Tazobactam 3.375 GM in Sodium Chloride 0.9% 50 ML IV SCH (15:45)
[2018-12-06] MEDS ORDERED: Adenosine 6 MG/2 ML SDV IVPUSH ONE ×2 (15:54→15:57)
[2018-12-06] MEDS ORDERED: Adenosine 6 MG/2 ML SDV ONE (15:54)
--- NOTE | 2018-12-06 16:01 | CRLCR ---
HISTORY: Shortness of breath and fever. COMPARISON: None available FINDINGS: A portable erect AP view of the chest was obtained at 1535 hours. There is moderate elevation of the right hemidiaphragm consistent with eventration. There is no definite atelectasis or consolidation associated with the elevation. The lungs are otherwise clear. The heart is normal in size. The mediastinum is normal in appearance. The osseous structures are normal in appearance for the patient`s age. IMPRESSION: No active disease seen in the chest. 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 Dictated by Rene Serna MD @ Dec 06 2018 3:59PM Signed by Dr. Rene Serna @ Dec 06 2018 4:00PM
[2018-12-06] MEDS ORDERED: Metoprolol Tartrate 5 MG/5 ML SDV IVPUSH ONE ×2 (16:03→19:14)
[2018-12-06] MEDS ORDERED: Metoprolol Tartrate 5 MG/5 ML SDV ONE (16:04)
[2018-12-06] MEDS ORDERED: Ibuprofen 600 MG Tab PO ONE (16:05)
[2018-12-06] MEDS ORDERED: Lidocaine 2% Jelly 10 ML Urojet MUCMEM ONE (16:58)
[2018-12-06] MEDS ORDERED: Heparin Sodium 5,000 Units/ML Vial IVPUSH ONE (18:28)
[2018-12-06] MEDS ORDERED: Clopidogrel 75 MG Tab PO ONE (18:28)
[2018-12-06] MEDS ORDERED: Heparin Sodium/D5W 25,000 UNITS/500 ML BAG IV SCH (18:30)
[2018-12-06] MEDS ORDERED: Metoprolol Tartrate 50 MG Tab PO ONE (19:14)
== END 2018-12-06 19:28 ==
LOC: JP.ED 15:08
DX: R00.0 Tachycardia, unspecified (principal); N39.0 Urinary tract infection, site not specified; R79.89 Other specified abnormal findings of blood chemistry; Z79.82 Long term (current) use of aspirin; Z79.899 Other long term (current) drug therapy
CPT/HCPCS: 36415; 51702; 71045; 80053; 81001; 83605; 83880; 84484; 85025; 87040; 87086; 87088; 87186; 93005; 96361; 96365; 96375; 96376; 99285; A9270; J0153; J1644; J2543; J3490; J7030; J7050